=== PATIENT | male | born 1985 | race Caucasian/White ===

== ENCOUNTER 2018-02-24 07:52 | Outpatient (CLI) | payer MEDICAID ==
[2018-02-24 10:45] LABS: BASOPHILS % (AUTO) 0.5 % (0-1); EOSINOPHILS # (AUTO) 0.1 X10'3 (0-0.9); EOSINOPHILS % (AUTO) 1.8 % (0-6); HEMATOCRIT 47.1 % (42.0-52.0); HEMOGLOBIN 15.9 g/dl (14.0-17.9); LYMPHOCYTES # (AUTO) 1.8 X10'3 (1.1-4.8); LYMPHOCYTES % (AUTO) 37.9 % (21-51); MEAN CORPUSCULAR HEMOGLOBIN 30.7 PG (27.0-31.0); MEAN CORPUSCULAR HGB CONC 33.9 % (33.0-36.5); MEAN CORPUSCULAR VOLUME 90.8 FL (78-98); MEAN PLATELET VOLUME 8.1 FL (7.4-10.4); MONOCYTES # (AUTO) 0.3 X10'3 (0-0.9); MONOCYTES % (AUTO) 7.3 % (2-12); NEUTROPHILS # (AUTO) 2.5 X10'3 (1.8-7.7); NEUTROPHILS % (AUTO) 52.5 % (42-75); PLATELET COUNT 244 X10'3 (140-440); RED BLOOD COUNT 5.19 X10'6 (4.70-6.10); RED CELL DISTRIBUTION WIDTH 12.3 % (11.5-14.5); WHITE BLOOD COUNT 4.8 X10'3 (4.5-11.0)
[2018-02-24 11:03] LABS: CHOLESTEROL 192 MG/DL (0-200); HDL CHOLESTEROL 48 MG/DL (35-60); LDL CHOLESTEROL 126 MG/DL (50-100); TRIGLYCERIDES 75 MG/DL (20-135)
[2018-02-24 11:09] LABS: RHEUM FACTOR QUAL REFLEX TITER NEGATIVE (Neg)
[2018-02-26 05:23] LABS: ANTINUCLEAR ANTIBODIES Negative (Negative)
[2018-02-27 05:26] LABS: F004 WHEAT 0.67 kU/L (Class II); F008 CORN 0.49 kU/L (Class I); F013 PEANUT 0.46 kU/L (Class I); F014 SOYBEAN 0.38 kU/L (Class I); F026 PORK <0.10 kU/L (Class 0); F027 BEEF <0.10 kU/L (Class 0); F052 CHOCOLATE/COCOA <0.10 kU/L (Class 0); FX02 FISH/SHELL MIX Negative (.)
== END 2018-02-24 23:59 | disposition home or self-care (01) ==
LOC: LAB 07:52
PROVIDERS: ATTEND Family Medicine
DX: Z00.01 Encounter for general adult medical examination with abnormal findings (principal); H04.002 Unspecified dacryoadenitis, left lacrimal gland; M23.92 Unspecified internal derangement of left knee; S33.8XXA Sprain of other parts of lumbar spine and pelvis, initial encounter; Z83.3 Family history of diabetes mellitus; Z82.49 Family history of ischemic heart disease and other diseases of the circulatory system; X58.XXXA Exposure to other specified factors, initial encounter; Y93.89 Activity, other specified; Y92.89 Other specified places as the place of occurrence of the external cause; Y99.8 Other external cause status
CPT/HCPCS: 36415; 80061; 84550; 85025; 85651; 86003; 86038; 86430; 86695; 86696; 87491

== ENCOUNTER 2022-04-04 10:01 | Emergency (ER) | payer MEDICAID, OTHER ==
[~2022-04-04] VITALS: Ht 205.7 cm; Wt 104.5 kg
[2022-04-04 10:05] VITALS: BP 149/69
== END 2022-04-04 16:27 | disposition home or self-care (01) ==
LOC: ER 10:01
DX: M79.602 Pain in left arm (principal)
CPT/HCPCS: 99281